=== PATIENT | male | born 1955 | race African-American/Black ===

== ENCOUNTER 2017-06-09 20:02 | Emergency (ER) | payer BC ==
[2017-06-09 20:36] VITALS: BP 175/91
--- NOTE | 2017-06-09 21:01 | EDM.PDOC ---
ED HPI GENERAL MEDICAL PROBLEM - General Chief Complaint: General Stated Complaint: Irregular heart beat Time Seen by Provider: 06/09/17 20:40 Source of Information: Reports: Patient, RN Notes Reviewed History Limitations: Reports: No Limitations - History of Present Illness INITIAL COMMENTS - FREE TEXT/NARRATIVE: 61 year old male presents to the ED with concerns that he can see his heart pulsating on the left side of his chest. He says this happens intermittently. He can see and feel when it happens. He denies feeling of his heart racing. He denies chest pain, shortness of breath, dyspnea on exertion, nausea, vomiting, fever or chills. He has a history of hypertension. He denies any additional cardiac history, cardiac murmors, previous AL. He denies chest wall injury. - Related Data Allergies Allergy/AdvReac Type Severity Reaction Status Date / Time No Known Allergies Allergy Verified 06/09/17 20:39 Home Meds: Home Meds Blood Pressure Medication 1 tab PO DAILY 06/09/17 [History] Past Medical History Cardiovascular History: Reports: Hypertension Gastrointestinal History: Reports: Other (See Below) Other Gastrointestinal History: anal fissure repair Social & Family History - Tobacco Use Smoking Status *Q: Current Every Day Smoker Years of Tobacco use: 40 Packs/Tins Daily: 0.2 - Caffeine Use Caffeine Use: Reports: Coffee, Soda - Recreational Drug Use Recreational Drug Use: No ED ROS GENERAL - Review of Systems Review Of Systems: See Below Constitutional: Reports: No Symptoms. Denies: Fever, Chills Respiratory: Reports: No Symptoms. Denies: Shortness of Breath, Cough Cardiovascular: Reports: Palpitations. Denies: Chest Pain, Blood Pressure Problem, Dyspnea on Exertion, Edema, Lightheadedness, Syncope GI/Abdominal: Reports: No Symptoms. Denies: Abdominal Pain, Nausea, Vomiting ED EXAM, GENERAL - Physical Exam Exam: See Below Exam Limited By: No Limitations General Appearance: Alert, WD/WN, No Apparent Distress, Anxious Respiratory/Chest: No Respiratory Distress, Lungs Clear, Normal Breath Sounds, No Accessory Muscle Use, Chest Non-Tender Cardiovascular: Normal Peripheral Pulses, No Murmur, Bradycardia, Other (I am able to visualize what the patient is talking about. There is intermittent pulsating of the heart at the PMI. He has no chest wall tenderness. ) GI/Abdominal: Normal Bowel Sounds, Soft, Non-Tender Course - Vital Signs Last Recorded V/S: Last Vital Signs Temp 97.7 F 06/09/17 20:35 Pulse 57 L 06/09/17 20:35 Resp 20 06/09/17 20:35 BP 175/91 H 06/09/17 20:35 Pulse Ox 99 06/09/17 20:35 - Orders/Labs/Meds Orders: Active Orders 24 hr Category Date Time Status EKG 12 Lead [EKG Documentation Completion] [RC] STAT Care 06/09/17 21:01 Active CXR [Chest 1V Frontal] [CR] Stat Exams 06/09/17 21:01 Taken CXR [Chest 2V] [CR] Stat Exams 06/09/17 21:45 Ordered - Re-Assessments/Exams Free Text/Narrative Re-Assessment/Exam: On exam, patient has visible pulsations at the PMI. This is a normal physiologic findings. However, due to the patient's history of hypertension, I ordered an EKG and chest x-ray. EKG reveals LVH pattern. No acute ischemic changes. Read by Dr. Espinoza. Portable chest xray reveals prominent lung markings in the left lung with mildly elevated left hemidiaphragm. Dr. Espinoza reviewed the chest x-ray and recommends repeating a 2 view chest x-ray due to poor quality of the portable chest x-ray. 2 view chest x-ray reveals normal heart size. There is still mildly increased lung markings on the left side. We discussed the possibility of PE, however the patient has no history or exam findings to indicate PE. Patient was reassured regarding his palpitations. Encouraged to return with any new symptoms. Instructed to monitor his BP and f/u with his PCP upon returning home. Departure - Departure Time of Disposition: 22:20 Disposition: Home, Self-Care 01 Condition: Good Clinical Impression: Intermittent palpitations Referrals: PCP,Not In Area [Primary Care Provider] - Forms: ED Department Discharge Additional Instructions: Return to ER with any chest pain, shortness of breath or additional concerns Monitor your blood pressure on a regular basis and follow-up with your regular provider as needed - My Orders Last 24 Hours: My Active Orders 06/09/17 21:01 EKG 12 Lead [EKG Documentation Completion] [RC] STAT CXR [Chest 1V Frontal] [CR] Stat 06/09/17 21:45 CXR [Chest 2V] [CR] Stat - Assessment/Plan Last 24 Hours: My Active Orders 06/09/17 21:01 EKG 12 Lead [EKG Documentation Completion] [RC] STAT CXR [Chest 1V Frontal] [CR] Stat 06/09/17 21:45 CXR [Chest 2V] [CR] Stat
--- NOTE | 2017-06-10 08:50 | CR ---
Chest: Portable view of the chest was obtained. Comparison: No previous chest x-ray. Slight increased density within the left upper lung is seen. Lungs otherwise are clear. Heart size is normal. Mild tortuosity of the thoracic aorta is seen. Impression: 1. Slight increased density within the left upper lung. Difficult to exclude small area of pneumonia. 2. Other incidental findings. Diagnostic code #3
--- NOTE | 2017-06-10 08:50 | CR ---
Chest: Two views of the chest were obtained. Comparison: Previous chest x-ray performed earlier on the same day (9:20 PM). Mild increased density within the left upper lung is seen. Slight atelectasis is seen within the left base. Lungs otherwise are clear. Heart size is normal. Mild tortuosity of the thoracic aorta is seen. Bony structures are within normal limits for the patient's age. Impression: 1. Increased density within left upper chest. Difficult to exclude pneumonia. Minimal atelectasis within the left base. 2. Other incidental findings. Diagnostic code #3
== END 2017-06-09 22:35 | disposition home or self-care (01) ==
LOC: JD.ED 20:02
DX: R00.2 Palpitations (principal); I10 Essential (primary) hypertension; F17.210 Nicotine dependence, cigarettes, uncomplicated
CPT/HCPCS: 71010; 71010-26; 71020; 71020-26; 93005; 99284; 99285-25